=== PATIENT | male | born 1990 | race Caucasian/White ===

== ENCOUNTER 2019-04-01 20:39 | Emergency (ER) | payer MEDICAID, OTHER ==
[~2019-04-01] VITALS: Ht 182.9 cm; Wt 113.6 kg
[~2019-04-01 20:39] MED LIST: HYDR50TA65 PO
[2019-04-01 20:50] VITALS: BP 123/74
[2019-04-02] MEDS ORDERED: AMOX-422 PO (12:08)
== END 2019-04-01 21:20 | disposition home or self-care (01) ==
LOC: ER 20:40
DX: H92.01 Otalgia, right ear (principal); F17.200 Nicotine dependence, unspecified, uncomplicated; F12.90 Cannabis use, unspecified, uncomplicated; J20.9 Acute bronchitis, unspecified; R50.9 Fever, unspecified; Z79.899 Other long term (current) drug therapy
CPT/HCPCS: 99281

== ENCOUNTER 2019-04-02 10:54 | Emergency (ER) | payer MEDICAID, OTHER ==
[~2019-04-02] VITALS: Ht 182.9 cm; Wt 115.9 kg
--- NOTE | 2019-04-02 11:16 | NUR ---
SECOND CALL, NOT IN LOBBY
[2019-04-02 11:24] VITALS: BP 145/84
[2019-04-02] MEDS ORDERED: AMOX-422 PO (12:08)
[2019-04-02] MEDS ORDERED: CefTRIAXone 250MG IM Kit w/LIDOcaine IM ONE (12:10)
== END 2019-04-02 12:30 | disposition home or self-care (01) ==
LOC: ER 10:54
DX: S00.412A Abrasion of left ear, initial encounter (principal); S00.411A Abrasion of right ear, initial encounter; H72.92 Unspecified perforation of tympanic membrane, left ear; L98.9 Disorder of the skin and subcutaneous tissue, unspecified; J02.9 Acute pharyngitis, unspecified; F12.90 Cannabis use, unspecified, uncomplicated; F17.200 Nicotine dependence, unspecified, uncomplicated; Z72.89 Other problems related to lifestyle; Z79.899 Other long term (current) drug therapy
CPT/HCPCS: 96372; 99283; J0696

== ENCOUNTER 2020-03-01 10:15 | Emergency (ER) | payer MEDICAID, OTHER ==
[~2020-03-01] VITALS: Ht 182.9 cm; Wt 117.0 kg
[2020-03-01] MEDS ORDERED: dexamethasone sod phosphate 10mg/ml inj IM STA (10:41)
[2020-03-01] MEDS ORDERED: AMOX500C2 PO (10:41)
== END 2020-03-01 11:07 | disposition home or self-care (01) ==
LOC: ER 10:16
DX: J02.9 Acute pharyngitis, unspecified (principal); F17.200 Nicotine dependence, unspecified, uncomplicated; F12.90 Cannabis use, unspecified, uncomplicated; Z79.2 Long term (current) use of antibiotics; Z79.899 Other long term (current) drug therapy
CPT/HCPCS: 96372; 99283; J1100

== ENCOUNTER 2020-09-06 09:22 | Emergency (ER) | payer MEDICAID ==
[~2020-09-06] VITALS: Ht 182.9 cm; Wt 122.7 kg
[2020-09-06 10:02] VITALS: BP 157/92
[2020-09-06] MEDS ORDERED: ERYT1OIN6 RIGHTEYE (11:25)
== END 2020-09-06 11:39 | disposition home or self-care (01) ==
LOC: ER 09:22
DX: H01.001 Unspecified blepharitis right upper eyelid (principal); R20.2 Paresthesia of skin; F12.90 Cannabis use, unspecified, uncomplicated; Z79.2 Long term (current) use of antibiotics; Z79.899 Other long term (current) drug therapy
CPT/HCPCS: 99283

== ENCOUNTER 2021-02-24 19:12 | Emergency (ER) | payer MEDICAID ==
[~2021-02-24] VITALS: Ht 185.4 cm; Wt 70.5 kg
[2021-02-24 19:41] VITALS: BP 136/84
== END 2021-02-24 20:19 | disposition home or self-care (01) ==
LOC: ER 19:13
DX: U07.1 COVID-19 (principal); F41.9 Anxiety disorder, unspecified; R06.02 Shortness of breath; F12.90 Cannabis use, unspecified, uncomplicated; Z79.899 Other long term (current) drug therapy
CPT/HCPCS: 71045; 99283

== ENCOUNTER 2021-05-26 21:26 | Emergency (ER) | payer MEDICAID ==
[~2021-05-26] VITALS: Ht 182.9 cm; Wt 114.5 kg
[2021-05-26 21:33] VITALS: BP 149/91
== END 2021-05-27 00:54 | disposition left against medical advice (07) ==
LOC: ER 21:26
DX: M25.561 Pain in right knee (principal); Z53.21 Procedure and treatment not carried out due to patient leaving prior to being seen by health care provider

== ENCOUNTER 2021-06-04 15:58 | Emergency (ER) | payer MEDICAID ==
[~2021-06-04] VITALS: Ht 182.9 cm; Wt 111.0 kg
[2021-06-04 16:00] VITALS: BP 149/92
== END 2021-06-04 18:04 | disposition home or self-care (01) ==
LOC: ER 15:58
DX: F41.9 Anxiety disorder, unspecified (principal); F12.10 Cannabis abuse, uncomplicated
CPT/HCPCS: 73564; 99283

== ENCOUNTER 2021-11-26 09:06 | Emergency (ER) | payer MEDICAID ==
[~2021-11-26] VITALS: Ht 182.9 cm; Wt 114.3 kg
[2021-11-26 10:39] LABS: BASOPHILS % (AUTO) 0.3 % (0-1); EOSINOPHILS % (AUTO) 0.6 % (0-6); HEMATOCRIT 46.6 % (42.0-52.0); HEMOGLOBIN 16.1 g/dl (14.0-17.9); LYMPHOCYTES # (AUTO) 1.8 X10'3 (1.1-4.8); LYMPHOCYTES % (AUTO) 23.3 % (21-51); MEAN CORPUSCULAR HEMOGLOBIN 30.3 PG (27.0-31.0); MEAN CORPUSCULAR HGB CONC 34.5 g/dL (33.0-36.5); MEAN CORPUSCULAR VOLUME 87.8 FL (78-98); MEAN PLATELET VOLUME 8.2 FL (7.4-10.4); MONOCYTES # (AUTO) 0.5 X10'3 (0-0.9); MONOCYTES % (AUTO) 6.3 % (2-12); NEUTROPHILS # (AUTO) 5.2 X10'3 (1.8-7.7); NEUTROPHILS % (AUTO) 69.5 % (42-75); PLATELET COUNT 306 X10'3 (140-440); RED BLOOD COUNT 5.31 X10'6 (4.70-6.10); RED CELL DISTRIBUTION WIDTH 13.4 % (11.5-14.5); WHITE BLOOD COUNT 7.5 X10'3 (4.5-11.0)
[2021-11-26 10:57] LABS: ALANINE AMINOTRANSFERASE 38 U/L (12-78); ALBUMIN 4.4 G/DL (3.4-5.0); ALBUMIN/GLOBULIN RATIO 1.3 (1.1-1.5); ALKALINE PHOSPHATASE 77 IU/L (46-116); ANION GAP 10 (8-16); ASPARTATE AMINO TRANSFERASE 15 U/L (10-37); BILIRUBIN,TOTAL 0.4 MG/DL (0.1-1.0); BLOOD UREA NITROGEN 13 MG/DL (7-18); BUN/CREATININE RATIO 13.5 (5.4-32.0); CALCIUM 9.6 MG/DL (8.5-10.1); CHLORIDE 108 MMOL/L (99-107); CREATININE 0.96 MG/DL (0.60-1.10); GLUCOSE 100 MG/DL (70-104); POTASSIUM 4.7 MMOL/L (3.5-5.1); SODIUM 144 MMOL/L (135-145); TOTAL CARBON DIOXIDE 25.8 MMOL/L (24-32); TOTAL PROTEIN 7.9 G/DL (6.4-8.2); eGFR > 90 ML/MIN
[2021-11-26 11:00] LABS: MAGNESIUM 1.9 MG/DL (1.5-2.4)
[2021-11-26 11:26] VITALS: BP 149/102
== END 2021-11-26 11:32 | disposition home or self-care (01) ==
LOC: ER 09:07
DX: F41.9 Anxiety disorder, unspecified (principal); F12.10 Cannabis abuse, uncomplicated; Z79.899 Other long term (current) drug therapy
CPT/HCPCS: 36415; 71045; 80053; 83735; 84484; 85025; 93005; 99285

== ENCOUNTER 2022-02-12 14:56 | Emergency (ER) | payer MEDICAID ==
[~2022-02-12] VITALS: Ht 182.9 cm; Wt 109.0 kg
[2022-02-12 15:25] VITALS: BP 141/81
== END 2022-02-12 16:54 | disposition home or self-care (01) ==
LOC: ER 14:57
DX: J06.9 Acute upper respiratory infection, unspecified (principal); Z20.822 Contact with and (suspected) exposure to COVID-19; R05.9 Cough, unspecified; R07.89 Other chest pain; F12.90 Cannabis use, unspecified, uncomplicated; Z79.899 Other long term (current) drug therapy
CPT/HCPCS: 87502; 87503; 87635; 99283; C9803